=== PATIENT | female | born 1995 | race Caucasian/White ===

== ENCOUNTER 2021-05-28 10:32 | Inpatient (IN) | payer BC, OTHER ==
[~2021-05-28 10:32] MED LIST: Bupivacaine 0.25% 10 ML SDV ONE
[2021-05-28] MEDS ORDERED: Sodium Chloride 0.9% 10 ML Syringe FLUSH PRN (10:49)
[2021-05-28] MEDS ORDERED: Lidocaine 1% 50 ML MDV INJECT ONE (10:49)
[2021-05-28] MEDS ORDERED: Nalbuphine 10 MG/1 ML Vial IVPUSH PRN (10:49)
[2021-05-28] MEDS ORDERED: Ondansetron 4 MG/2 ML SDV IVPUSH PRN (10:49)
[2021-05-28] MEDS ORDERED: ePHEDrine 50 MG/ML SDV IVPUSH PRN (10:59)
[2021-05-28] MEDS ORDERED: Bupivacaine/fentaNYL/NS 100 ML Bag EPIDUR PRN (10:59)
[2021-05-28] MEDS ORDERED: fentaNYL 100 MCG/2 ML SDV EPIDUR PRN (10:59)
[2021-05-28] MEDS ORDERED: diphenhydrAMINE 50 MG/ML SDV IVPUSH PRN (10:59)
[2021-05-28] MEDS ORDERED: Oxytocin/Lactated Ringers 10 UNIT/1,000 ML BAG IV SCH (11:00)
[2021-05-28] MEDS ORDERED: Lactated Ringers 1,000 ML IV SCH (11:00)
--- NOTE | 2021-05-28 11:05 | PCM.PREANE ---
Preanesthetic Assessment - Procedure Proposed Procedure: Labor epidural - Anesthesia/Transfusion/Family Hx Anesthesia History: Prior Anesthesia Reaction Type of Anesthesia Reaction: Excessive Nausea/Vomiting Family History of Anesthesia Reaction: No Transfusion History: No Prior Transfusion(s) Intubation History: Unknown - Review of Systems General: No Symptoms Pulmonary: No Symptoms Cardiovascular: No Symptoms Gastrointestinal: Abdominal Pain (uterine contractions), Nausea, Vomiting Neurological: No Symptoms Other: Reports: Easy Bleeding, Easy Bruising, Diabetes (Gestional diabetes), Anxiety - Physical Assessment NPO Status Date: 05/27/21 NPO Status Time: 20:00 Height: 1.65 m Weight: 109.316 kg ASA Class: 3 Mental Status: Alert & Oriented x3 Airway Class: Mallampati = 3 Dentition: Reports: Normal Dentition Thyro-Mental Finger Breadths: 3 Mouth Opening Finger Breadths: 3 ROM/Head Extension: Full Lungs: Clear to Auscultation, Normal Respiratory Effort Cardiovascular: Regular Rate, Regular Rhythm, No Murmurs - Lab Values: Awaiting for lab results - Allergies Allergies/Adverse Reactions: Allergies Allergy/AdvReac Type Severity Reaction Status Date / Time sulfamethoxazole Allergy Hives Verified 05/28/21 10:46 [From Bactrim] trimethoprim [From Bactrim] Allergy Hives Verified 05/28/21 10:46 - Blood Blood Available: Yes Product(s) Available: PRBC - Acknowledgements Anesthesia Type Planned: Epidural Pt an Appropriate Candidate for the Planned Anesthesia: Yes Alternatives and Risks of Anesthesia Discussed w Pt/Guardian: Yes Pt/Guardian Understands and Agrees with Anesthesia Plan: Yes PreAnesthesia Questionnaire HEENT History: Reports: Impaired Vision Cardiovascular History: Reports: None Respiratory History: Reports: None Gastrointestinal History: Reports: GERD Genitourinary History: Reports: None, Other (See Below) Other Genitourinary History: History of kidney stones, no surgical interventions 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: Musculoskeletal History: Reports: None Neurological History: Reports: None Psychiatric History: Reports: None Endocrine/Metabolic History: Reports: Diabetes, Gestational, Obesity/BMI 30+ Hematologic History: Reports: None Immunologic History: Reports: None Oncologic (Cancer) History: Reports: None Dermatologic History: Reports: None - Past Surgical History GI Surgical History: Reports: Other (See Below) Other GI Surgeries/Procedures: Lap paulo Female Surgical History: Reports: LEEP - SUBSTANCE USE Tobacco Use Status *Q: Never Tobacco User Tobacco Use Within Last Twelve Months: No Second Hand Smoke Exposure: No Days Per Week of Alcohol Use: 0 Number of Drinks Per Day: 0 Total Drinks Per Week: 0 Recreational Drug Use History: No - CURRENT (IN HOUSE) MEDS Current Meds: Current Medications Oxytocin/Lactated Ringer's (Pitocin In Lr 10 Units/1,000 Ml) 10 unit in 1,000 mls @ 500 mls/hr IV .CONTINUOUS DAMIAN Lactated Ringer's (Ringers, Lactated) 1,000 mls @ 100 mls/hr IV ASDIRECTED DAMIAN Nalbuphine HCl (Nalbuphine 10 Mg/1 Ml Vial) 10 mg IVPUSH Q2H PRN PRN Reason: Pain Ondansetron HCl (Ondansetron 4 Mg/2 Ml Sdv) 4 mg IVPUSH Q4H PRN PRN Reason: Nausea/Vomiting Sodium Chloride (Sodium Chloride 0.9% 10 Ml Syringe) 10 ml FLUSH ASDIRECTED PRN PRN Reason: Keep Vein Open Discontinued Medications Lidocaine HCl (Lidocaine 1% 50 Ml Mdv) 50 ml INJECT ONETIME ONE Stop: 05/28/21 10:50
--- NOTE | 2021-05-28 11:34 | PCM.LDHP ---
L&D History of Present Illness - General Date of Service: 05/28/21 Admit Problem/Dx: Patient Status Order with Admit Dx/Problem 05/28/21 10:50 Patient Status [ADT] Routine Admission Diagnosis/Problem Admission Diagnosis/Problem Source of Information: Patient History Limitations: Reports: No Limitations - History of Present Illness Introduction:: Patient is a 26 y/o at 38 0/7 wks who presents in labor. Contractions started around 0800. Became very uncomfortable on ride down. 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 : 3 Para: 1 LMP (Approximate): Psychiatric History: Reports: Depression Endocrine/Metabolic History: Reports: Diabetes, Gestational, Obesity/BMI 30+ Hematologic History: Reports: Other (See Below) (betathalassemia) - Infectious Disease History Infectious Disease History: Reports: Herpes, MRSA - Past Surgical History GI Surgical History: Reports: Cholecystectomy Female Surgical History: Reports: LEEP Social & Family History - Tobacco Use Tobacco Use Status *Q: Never Tobacco User Second Hand Smoke Exposure: No - Alcohol Use Alcohol Use History: No Days Per Week of Alcohol Use: 0 Number of Drinks Per Day: 0 Total Drinks Per Week: 0 - Recreational Drug Use Recreational Drug Use: No H&P Review of Systems - Review of Systems: Review Of Systems: See Below General: Reports: No Symptoms Pulmonary: Reports: No Symptoms Cardiovascular: Reports: No Symptoms Gastrointestinal: Reports: No Symptoms Genitourinary: Reports: No Symptoms Musculoskeletal: Reports: No Symptoms Psychiatric: Reports: No Symptoms Neurological: Reports: No Symptoms L&D Exam - Exam Exam: See Below - Vital Signs Weight: 109.316 kg - OB Specific Contraction Intensity: Strong Movement: Active Heart Tones: Present Heart Tones per Min: 145 Heart Rate (FHR) Variability: Moderate (6-25 bpm) Presentation: Vertex - Marie Score Marie Score Cervix Position: Anterior Marie Score Consistency: Soft Marie Score Effacement: >80% Marie Score Dilation: > 5 cm Marie Score 's Station: -1 ,0 Marie Score Total: 12 - Exam General: Alert, Oriented, Cooperative Lungs: Clear to Auscultation, Normal Respiratory Effort Cardiovascular: Regular Rate, Regular Rhythm GI/Abdominal Exam: Soft, Non-Tender Genitourinary: Normal external exam Extremities: Normal Inspection Skin: Warm, Dry, Intact - Patient Data Lab Results Last 24 hrs: Laboratory Results - last 24 hr 05/28/21 Range/Units 10:53 WBC 12.75 H (3.98-10.04) K/mm3 RBC 5.46 H (3.98-5.22) M/mm3 Hgb 10.8 L (11.2-15.7) gm/dl Hct 33.3 L (34.1-44.9) % MCV 61.0 L (79.4-94.8) fl MCH 19.8 L (25.6-32.2) pg MCHC 32.4 (32.2-35.5) g/dl RDW Std Deviation 36.7 (36.4-46.3) fL Plt Count 403 H (182-369) K/mm3 MPV 11.3 (9.4-12.3) fl Neut % (Auto) 80.0 H (34.0-71.1) % Lymph % (Auto) 13.6 L (19.3-51.7) % Town[place] % (Auto) 5.5 (4.7-12.5) % Eos % (Auto) 0.2 L (0.7-5.8) Baso % (Auto) 0.2 (0.1-1.2) % Neut # (Auto) 10.20 H (1.56-6.13) K/mm3 Lymph # (Auto) 1.74 (1.18-3.74) K/mm3 Towner # (Auto) 0.70 H (0.24-0.36) K/mm3 Eos # (Auto) 0.02 L (0.04-0.36) K/mm3 Baso # (Auto) 0.02 (0.01-0.08) K/mm3 Result Diagrams: 05/28/21 10:53 - Problem List (1) 38 weeks gestation of SNOMED Code(s): 03523068 ICD Code: Z3A.38 - 38 WEEKS GESTATION OF Status: Acute Current Visit: Yes (2) Beta thalassemia trait SNOMED Code(s): 615136753 ICD Code: D56.3 - THALASSEMIA MINOR Status: Acute Current Visit: Yes (3) Gestational diabetes SNOMED Code(s): 93740566 ICD Code: O24.419 - GESTATIONAL DIABETES MELLITUS IN , UNSP CONTROL Status: Acute Current Visit: Yes Qualifiers: Gestational diabetes mellitus control: diet-controlled Trimester: third trimester Qualified Code(s): O24.410 - Gestational diabetes mellitus in , diet controlled (4) History of herpes genitalis SNOMED Code(s): 716122318 ICD Code: Z86.19 - PERSONAL HISTORY OF OTHER INFECTIOUS AND PARASITIC DISEASES Status: Acute Current Visit: Yes Problem List Initiated/Reviewed/Updated: Yes Orders Last 24hrs: Active Orders 24 hr Category Date Time Status Patient Status [ADT] Routine ADT 05/28/21 10:50 Active Activity as Tolerated [RC] PFP Care 05/28/21 10:50 Active Communication Order [RC] ASDIRECTED Care 05/28/21 10:50 Active Heart Tones [RC] ASDIRECTED Care 05/28/21 10:51 Active Non Stress Test [RC] PER UNIT ROUTINE Care 05/28/21 10:50 Active Notify Provider [RC] ASDIRECTED Care 05/28/21 10:59 Active Notify Provider [RC] PFP Care 05/28/21 10:50 Active Notify Provider [RC] PRN Care 05/28/21 10:50 Active Peripheral IV Care [RC] . DIRECTED Care 05/28/21 10:51 Active Pump Management, Intrathecal [RC] ASDIRECTED Care 05/28/21 10:52 Active Urinary Catheter Assessment [RC] ASDIRECTED Care 05/28/21 10:49 Active Vital Signs [RC] PER UNIT ROUTINE Care 05/28/21 10:50 Active Regular Diet [DIET] Diet 05/28/21 Breakfast Active CORONAVIRUS COVID-19 NIELS [MOLEC] Stat Lab 05/28/21 10:56 Received RAPID PLASMA REAGIN,RPR [CHEM] Routine Lab 05/28/21 10:53 Received Bupivacaine/fentaNYL/NS [fentaNYL/Bupivacaine/NS 2 MCG- Med 05/28/21 10:59 Active 0.125% 100 ML] 100 ml EPIDUR ASDIRECTED PRN Lactated Ringers [Ringers, Lactated] 1,000 ml Med 05/28/21 11:00 Active IV ASDIRECTED Nalbuphine [Nubain] Med 05/28/21 10:49 Active 10 mg IVPUSH Q2H PRN Ondansetron [Zofran] Med 05/28/21 10:49 Active 4 mg IVPUSH Q4H PRN Oxytocin/Lactated Ringers [Pitocin in LR 10 Units/1,000 Med 05/28/21 11:00 Active ML] 10 unit in 1,000 ml IV .CONTINUOUS Sodium Chloride 0.9% [Saline Flush] Med 05/28/21 10:49 Active 10 ml FLUSH ASDIRECTED PRN diphenhydrAMINE [Benadryl] Med 05/28/21 10:59 Active 25 mg IVPUSH Q6H PRN ePHEDrine [ePHEDrine sulfate] Med 05/28/21 10:59 Active 5 mg IVPUSH ASDIRECTED PRN fentaNYL [Sublimaze] Med 05/28/21 10:59 Active 100 mcg EPIDUR Q3H PRN Electronic Heart Tones Ext w TOCO [WOMSER] Oth 05/28/21 10:50 Ordered Routine Electronic Heart Tones Internal [WOMSER] Per Unit Oth 05/28/21 10:50 Ordered Routine Peripheral IV Insertion Adult [OM.PC] Routine Oth 05/28/21 10:50 Ordered Resuscitation Status Routine Resus Stat 05/28/21 10:49 Ordered Medication Orders Diphenhydramine HCl (Diphenhydramine 50 Mg/Ml Sdv) 25 mg IVPUSH Q6H PRN PRN Reason: pruritis Ephedrine Sulfate (Ephedrine 50 Mg/Ml Sdv) 5 mg IVPUSH ASDIRECTED PRN PRN Reason: Hypotension Fentanyl (Fentanyl 100 Mcg/2 Ml Sdv) 100 mcg EPIDUR Q3H PRN PRN Reason: Pain Last Admin: 05/28/21 11:23 Dose: 100 mcg Documented by: DORA Fentanyl/Bupivacaine HCl (Bupivacaine/Fentanyl/Ns 100 Ml Bag) 100 ml EPIDUR ASDIRECTED PRN PRN Reason: Pain Oxytocin/Lactated Ringer's (Pitocin In Lr 10 Units/1,000 Ml) 10 unit in 1,000 mls @ 500 mls/hr IV .CONTINUOUS DAMIAN Lactated Ringer's (Ringers, Lactated) 1,000 mls @ 100 mls/hr IV ASDIRECTED DAMIAN Nalbuphine HCl (Nalbuphine 10 Mg/1 Ml Vial) 10 mg IVPUSH Q2H PRN PRN Reason: Pain Ondansetron HCl (Ondansetron 4 Mg/2 Ml Sdv) 4 mg IVPUSH Q4H PRN PRN Reason: Nausea/Vomiting Last Admin: 05/28/21 11:27 Dose: 4 mg Documented by: DORA Sodium Chloride (Sodium Chloride 0.9% 10 Ml Syringe) 10 ml FLUSH ASDIRECTED PRN PRN Reason: Keep Vein Open Assessment/Plan Comment:: * Patient denies any concerns for HSV outbreak currently * Hx of MRSA. Culture to be done today * GODMA1, blood sugars q2 * GBS negative * Pain management per patient preference * Anticipate
--- NOTE | 2021-05-28 12:24 | PCM.DEL ---
L & D Note - General Info Date of Service: 05/28/21 - Delivery Note Labor: Spontaneous Delivery Outcome: Livebirth Delivery Method: Spontaneous Vaginal Delivery-Single Delivery Mode: Spontaneous Presentation: Left Occiput Anterior (KATHY) Nuchal Cord: None Anesthesia Type: Epidural Amniotic Fluid Description: Clear Episiotomy Type: None Laceration: 1st Degree Suture type: Vicryl Suture size: 2-0 Placenta: Intact, Spontaneous Cord: 3 Vessels Estimated Blood Loss: 150 Resuscitation Needed: Yes : Bulb Syringe, Stimulated, Warmed, [place] Used, Warmer Used Delivery Comments (Free Text/Narrative):: Patient complete and began pushing. With maternal pushing effort head delivered from KATHY presentation. No nuchal cord present. With gentle downward tractions the shoulders and body delivered. Infant placed on maternal abdomen. Cord clamped and cut. Cord blood obtained. Placenta allowed time to separate and expelled intact. Inspection of perineum showed small 1st degree which was repaired with a 2-0 in the typical fashion - General Info Date of Service: 05/28/21 - Patient Data Vitals - Most Recent: Last Vital Signs Temp 36.6 C 05/28/21 11:10 Pulse 94 05/28/21 11:10 Resp 20 05/28/21 11:10 BP 127/83 05/28/21 11:10 Pulse Ox 100 05/28/21 11:10 Weight - Most Recent: 109.316 kg - Problem List & Annotations (1) 38 weeks gestation of SNOMED Code(s): 46384206 Code(s): Z3A.38 - 38 WEEKS GESTATION OF Status: Acute Current Visit: Yes (2) Beta thalassemia trait SNOMED Code(s): 310237699 Code(s): D56.3 - THALASSEMIA MINOR Status: Acute Current Visit: Yes (3) Gestational diabetes SNOMED Code(s): 32122199 Code(s): O24.419 - GESTATIONAL DIABETES MELLITUS IN , UNSP CONTROL Status: Acute Current Visit: Yes Qualifiers: Gestational diabetes mellitus control: diet-controlled Trimester: third trimester Qualified Code(s): O24.410 - Gestational diabetes mellitus in , diet controlled (4) History of herpes genitalis SNOMED Code(s): 715831800 Code(s): Z86.19 - PERSONAL HISTORY OF OTHER INFECTIOUS AND PARASITIC DISEASES Status: Acute Current Visit: Yes (5) Vaginal delivery SNOMED Code(s): 132928785 Code(s): O80 - ENCOUNTER FOR FULL-TERM UNCOMPLICATED DELIVERY Status: Acute Current Visit: Yes - Problem List Review Problem List Initiated/Reviewed/Updated: Yes - My Orders Last 24 Hours: My Active Orders 05/28/21 Breakfast Regular Diet [DIET] 05/28/21 10:49 Urinary Catheter Assessment [RC] ASDIRECTED Nalbuphine [Nubain] 10 mg IVPUSH Q2H PRN Ondansetron [Zofran] 4 mg IVPUSH Q4H PRN Sodium Chloride 0.9% [Saline Flush] 10 ml FLUSH ASDIRECTED PRN Resuscitation Status Routine 05/28/21 10:50 Patient Status [ADT] Routine Activity as Tolerated [RC] PFP Communication Order [RC] ASDIRECTED Non Stress Test [RC] PER UNIT ROUTINE Notify Provider [RC] PFP Notify Provider [RC] PRN Vital Signs [RC] PER UNIT ROUTINE Electronic Heart Tones Ext w TOCO [WOMSER] Routine Electronic Heart Tones Internal [WOMSER] Per Unit Routine Peripheral IV Insertion Adult [OM.PC] Routine 05/28/21 10:51 Heart Tones [RC] ASDIRECTED Peripheral IV Care [RC] . DIRECTED 05/28/21 10:52 Pump Management, Intrathecal [RC] ASDIRECTED 05/28/21 10:53 RAPID PLASMA REAGIN,RPR [CHEM] Routine 05/28/21 11:00 Lactated Ringers [Ringers, Lactated] 1,000 ml IV ASDIRECTED Oxytocin/Lactated Ringers [Pitocin in LR 10 Units/1,000 ML] 10 unit in 1,000 ml IV .CONTINUOUS 05/28/21 11:43 Blood Glucose Check, Bedside [RC] Q2HR - Assessment Assessment:: PPD#0 - Plan Plan:: * Routine cares * Fasting blood sugar in AM * Discharge home in 1-2 days
[2021-05-28] MEDS ORDERED: Benzocaine/Menthol 20%-0.5% Spray 78 GM Cannister TOP PRN (13:14)
[2021-05-28] MEDS ORDERED: Docusate Sodium 100 MG Cap PO PRN (13:14)
[2021-05-28] MEDS ORDERED: Witch Hazel Medicated Pads 40/Jar TOP PRN (13:14)
[2021-05-28] MEDS ORDERED: Acetaminophen 325 MG Tab PO PRN (13:14)
[2021-05-28] MEDS: Ibuprofen 600 MG Tab PO PRN ×2 (13:23→22:12)
[2021-05-28] MEDS ORDERED: Calcium Carbonate 500 MG Tab.Chew PO ONE (16:56)
[2021-05-28] MEDS ORDERED: Lactated Ringers 500 ML IV ONE (17:52)
--- NOTE | 2021-05-29 06:32 | PCM.PNPP ---
- General Info Date of Service: 05/29/21 Functional Status: Reports: Pain Controlled, Tolerating Diet, Ambulating, Urinating - Review of Systems General: Reports: No Symptoms Pulmonary: Reports: No Symptoms Cardiovascular: Reports: No Symptoms Gastrointestinal: Reports: No Symptoms Genitourinary: Reports: No Symptoms Musculoskeletal: Reports: No Symptoms Neurological: Reports: No Symptoms - General Info Date of Service: 05/29/21 - Patient Data Vital Signs - Most Recent: Last Vital Signs Temp 36.7 C 05/29/21 03:51 Pulse 75 05/29/21 03:51 Resp 15 05/29/21 03:51 BP 116/83 05/29/21 03:51 Pulse Ox 99 05/29/21 03:51 Weight - Most Recent: 109.316 kg I&O - Last 24 Hours: Intake & Output 05/28/21 05/28/21 05/29/21 14:59 22:59 06:59 Intake Total 2240 Balance 2240 Lab Results - Last 24 Hours: Laboratory Results - last 24 hr 05/28/21 05/28/21 05/28/21 Range/Units 10:53 10:53 10:56 WBC 12.75 H (3.98-10.04) K/mm3 RBC 5.46 H (3.98-5.22) M/mm3 Hgb 10.8 L (11.2-15.7) gm/dl Hct 33.3 L (34.1-44.9) % MCV 61.0 L (79.4-94.8) fl MCH 19.8 L (25.6-32.2) pg MCHC 32.4 (32.2-35.5) g/dl RDW Std Deviation 36.7 (36.4-46.3) fL Plt Count 403 H (182-369) K/mm3 MPV 11.3 (9.4-12.3) fl Neut % (Auto) 80.0 H (34.0-71.1) % Lymph % (Auto) 13.6 L (19.3-51.7) % Gates % (Auto) 5.5 (4.7-12.5) % Eos % (Auto) 0.2 L (0.7-5.8) Baso % (Auto) 0.2 (0.1-1.2) % Neut # (Auto) 10.20 H (1.56-6.13) K/mm3 Lymph # (Auto) 1.74 (1.18-3.74) K/mm3 Gates # (Auto) 0.70 H (0.24-0.36) K/mm3 Eos # (Auto) 0.02 L (0.04-0.36) K/mm3 Baso # (Auto) 0.02 (0.01-0.08) K/mm3 Manual Slide Review Abnormal smear RPR Non-reactive (NONREACTIVE) SARS-CoV-2 RNA (NIELS) Negative (NEGATIVE) MRSA (PCR) 05/28/21 Range/Units 12:25 WBC (3.98-10.04) K/mm3 RBC (3.98-5.22) M/mm3 Hgb (11.2-15.7) gm/dl Hct (34.1-44.9) % MCV (79.4-94.8) fl MCH (25.6-32.2) pg MCHC (32.2-35.5) g/dl RDW Std Deviation (36.4-46.3) fL Plt Count (182-369) K/mm3 MPV (9.4-12.3) fl Neut % (Auto) (34.0-71.1) % Lymph % (Auto) (19.3-51.7) % Gates % (Auto) (4.7-12.5) % Eos % (Auto) (0.7-5.8) Baso % (Auto) (0.1-1.2) % Neut # (Auto) (1.56-6.13) K/mm3 Lymph # (Auto) (1.18-3.74) K/mm3 Gates # (Auto) (0.24-0.36) K/mm3 Eos # (Auto) (0.04-0.36) K/mm3 Baso # (Auto) (0.01-0.08) K/mm3 Manual Slide Review RPR (NONREACTIVE) SARS-CoV-2 RNA (NIELS) (NEGATIVE) MRSA (PCR) Negative Med Orders - Current: Current Medications Acetaminophen (Acetaminophen 325 Mg Tab) 650 mg PO Q4H PRN PRN Reason: mild pain or fever Last Admin: 05/28/21 15:23 Dose: 650 mg Documented by: Benzocaine/Menthol (Benzocaine/Menthol 20%-0.5% [place] 78 Gm Cannister) 0 gm TOP ASDIRECTED PRN PRN Reason: Perineal Comfort Measure Last Admin: 05/28/21 14:40 Dose: 1 can Documented by: Docusate Sodium (Docusate Sodium 100 Mg Cap) 100 mg PO BID PRN PRN Reason: Constipation Ibuprofen (Ibuprofen 600 Mg Tab) 600 mg PO Q6H PRN PRN Reason: Mild pain or fever Last Admin: 05/28/21 22:12 Dose: 600 mg Documented by: Rosey Vargas (Rosey Vargas Medicated Pads 40/Jar) 1 pad TOP ASDIRECTED PRN PRN Reason: Perineal Comfort Measure Last Admin: 05/28/21 14:39 Dose: 1 box Documented by: Discontinued Medications Calcium Carbonate/Glycine (Calcium Carbonate 500 Mg Tab.Chew) 1,000 mg PO ONETIME ONE Stop: 05/28/21 16:57 Last Admin: 05/28/21 17:06 Dose: 1,000 mg Documented by: Diphenhydramine HCl (Diphenhydramine 50 Mg/Ml Sdv) 25 mg IVPUSH Q6H PRN PRN Reason: pruritis Ephedrine Sulfate (Ephedrine 50 Mg/Ml Sdv) 5 mg IVPUSH ASDIRECTED PRN PRN Reason: Hypotension Fentanyl (Fentanyl 100 Mcg/2 Ml Sdv) 100 mcg EPIDUR Q3H PRN PRN Reason: Pain Last Admin: 05/28/21 11:23 Dose: 100 mcg Documented by: Fentanyl/Bupivacaine HCl (Bupivacaine/Fentanyl/Ns 100 Ml Bag) 100 ml EPIDUR ASDIRECTED PRN PRN Reason: Pain Oxytocin/Lactated Ringer's (Pitocin In Lr 10 Units/1,000 Ml) 10 unit in 1,000 mls @ 500 mls/hr IV .CONTINUOUS DAMIAN Lactated Ringer's (Ringers, Lactated) 1,000 mls @ 100 mls/hr IV ASDIRECTED DAMIAN Last Admin: 05/28/21 10:55 Dose: 100 mls/hr Documented by: Lactated Ringer's (Ringers, Lactated) 500 mls @ 100 mls/hr IV .BOLUS ONE Stop: 05/28/21 22:51 Last Admin: 05/28/21 18:14 Dose: 100 mls/hr Documented by: Lidocaine HCl (Lidocaine 1% 50 Ml Mdv) 50 ml INJECT ONETIME ONE Stop: 05/28/21 10:50 Nalbuphine HCl (Nalbuphine 10 Mg/1 Ml Vial) 10 mg IVPUSH Q2H PRN PRN Reason: Pain Ondansetron HCl (Ondansetron 4 Mg/2 Ml Sdv) 4 mg IVPUSH Q4H PRN PRN Reason: Nausea/Vomiting Last Admin: 05/28/21 11:27 Dose: 4 mg Documented by: Sodium Chloride (Sodium Chloride 0.9% 10 Ml Syringe) 10 ml FLUSH ASDIRECTED PRN PRN Reason: Keep Vein Open - Interaction Disposition, : in Room with Family Interaction: Holding Feeding: Attempted ; Nursed Fair/Poor, Bottle Fed Support Person: - Recovery Exam Fundal Tone: Firm Fundal Level: At Umbilicus Fundal Placement: Midline Lochia Amount: Small Lochia Color: Rubra/Red Perineum Description: Other (see below) Other Perinuem Description: 1st degree with repair Episiotomy/Laceration: Approximated Bladder Status: Voiding Urinary Elimination: Voided - Exam General: Alert, Oriented, Cooperative GI/Abdominal Exam: Soft, Non-Tender - Problem List & Annotations (1) 38 weeks gestation of SNOMED Code(s): 33902364 Code(s): Z3A.38 - 38 WEEKS GESTATION OF Status: Acute Current Visit: Yes (2) Beta thalassemia trait SNOMED Code(s): 708171578 Code(s): D56.3 - THALASSEMIA MINOR Status: Acute Current Visit: Yes (3) Gestational diabetes SNOMED Code(s): 37852235 Code(s): O24.419 - GESTATIONAL DIABETES MELLITUS IN , UNSP CONTROL Status: Acute Current Visit: Yes Qualifiers: Gestational diabetes mellitus control: diet-controlled Trimester: third trimester Qualified Code(s): O24.410 - Gestational diabetes mellitus in , diet controlled (4) History of herpes genitalis SNOMED Code(s): 616227815 Code(s): Z86.19 - PERSONAL HISTORY OF OTHER INFECTIOUS AND PARASITIC DISEASES Status: Acute Current Visit: Yes (5) Vaginal delivery SNOMED Code(s): 017306237 Code(s): O80 - ENCOUNTER FOR FULL-TERM UNCOMPLICATED DELIVERY Status: Acute Current Visit: Yes - Problem List Review Problem List Initiated/Reviewed/Updated: Yes - My Orders Last 24 Hours: My Active Orders 05/28/21 10:49 Resuscitation Status Routine 05/28/21 Lunch Regular Diet [DIET] 05/28/21 13:14 Acetaminophen [TylenoL] 650 mg PO Q4H PRN Benzocaine/Menthol [Dermoplast Pain Relief 20%-0.5% [place]] See Dose Instructions TOP ASDIRECTED PRN Docusate Sodium [Colace] 100 mg PO BID PRN Ibuprofen [Motrin] 600 mg PO Q6H PRN witch Britni [Tucks] 1 pad TOP ASDIRECTED PRN Heat Therapy [OM.PC] PRN 05/28/21 13:14 Activity as Tolerated [RC] PER UNIT ROUTINE Vital Signs [RC] 03,,, Assess Lochia [WOMSER] Per Unit Routine Assess Uterine Involution [WOMSER] Per Unit Routine Breast Pump [WOMSER] Per Unit Routine Ice Therapy [OM.PC] Per Unit Routine Perineal Care [OM.PC] Per Unit Routine Peripheral IV Discontinue [OM.PC] Routine Sitz Bath [OM.PC] Per Unit Routine 05/29/21 05:00 Blood Glucose Check, Bedside [RC] ASDIRECTED 05/29/21 06:32 Ready for Discharge [RC] PER UNIT ROUTINE 05/29/21 13:14 Heat Therapy [OM.PC] PRN - Assessment Assessment:: PPD#1 - Plan Plan:: * Routine cares * Fasting blood sugar this AM WNL * Breast and bottle feeding * Discharge home today
--- NOTE | 2021-05-29 07:31 | PCM48HPAN ---
Post Anesthesia Note - EVALUATION WITHIN 48HRS OF ANESTHETIC Vital Signs in Normal Range: Yes Patient Participated in Evaluation: Yes Respiratory Function Stable: Yes Airway Patent: Yes Cardiovascular Function Stable: Yes Hydration Status Stable: Yes Pain Control Satisfactory: Yes Nausea and Vomiting Control Satisfactory: Yes Mental Status Recovered: Yes Vital Signs: Last Vital Signs Temp 36.7 C 05/29/21 03:51 Pulse 75 05/29/21 03:51 Resp 15 05/29/21 03:51 BP 116/83 05/29/21 03:51 Pulse Ox 99 05/29/21 03:51 - COMMENTS/OBSERVATIONS Free Text/Narrative:: no anesthesia complications noted
[2021-05-29] MEDS: Ibuprofen 600 MG Tab PO PRN (09:01)
== END 2021-05-29 13:30 | disposition home or self-care (01) | DRG 806 ==
LOC: JD.OBCHECK 10:32 → JD.OB 10:37 → JD.OBCHECK 10:50 → OBSVTOIN 12:07 → JD.OB 12:08
PROVIDERS: ADMIT Obstetrics & Gynecology; ATTEND Obstetrics & Gynecology
PROC: 10E0XZZ Delivery of Products of Conception, External Approach (ICD-10-PCS; principal; 2021-05-28)
PROC: 10907ZC Drainage of Amniotic Fluid, Therapeutic from Products of Conception, Via Natural or Artificial Opening (ICD-10-PCS; 2021-05-28)
PROC: 0HQ9XZZ Repair Perineum Skin, External Approach (ICD-10-PCS; 2021-05-28)
PROC: 3E0R3BZ Introduction of Anesthetic Agent into Spinal Canal, Percutaneous Approach (ICD-10-PCS; 2021-05-28)
PROC: 00HU33Z Insertion of Infusion Device into Spinal Canal, Percutaneous Approach (ICD-10-PCS; 2021-05-28)
DX: O24.420 Gestational diabetes mellitus in childbirth, diet controlled (principal); O98.32 Other infections with a predominantly sexual mode of transmission complicating childbirth; Z37.0 Single live birth; Z3A.38 38 weeks gestation of pregnancy; O99.62 Diseases of the digestive system complicating childbirth; K21.9 Gastro-esophageal reflux disease without esophagitis; A60.09 Herpesviral infection of other urogenital tract; O99.214 Obesity complicating childbirth; O70.0 First degree perineal laceration during delivery; O35.2XX0 Maternal care for (suspected) hereditary disease in fetus, not applicable or unspecified; D56.3 Thalassemia minor; Z86.19 Personal history of other infectious and parasitic diseases; Z88.2 Allergy status to sulfonamides; Z88.1 Allergy status to other antibiotic agents
CPT/HCPCS: 01967; 36415; 59025; 59409; 82947; 85025; 86592; 87641; A9270-GY; J2405; J3010; J3490; J7120; U0002

== ENCOUNTER 2021-05-31 14:24 | Emergency (ER) | payer OTHER | END 2021-05-31 16:36 | disposition left against medical advice (07) | LOC: JD.ED 14:24 | DX: Z53.21 Procedure and treatment not carried out due to patient leaving prior to being seen by health care provider (principal) ==

== ENCOUNTER 2021-06-05 12:52 | Emergency (ER) | payer OTHER ==
[2021-06-05] MEDS ORDERED: Sodium Chloride 0.9% 10 ML Syringe FLUSH PRN (13:36)
[2021-06-05] MEDS ORDERED: Sodium Chloride 0.9% 1,000 ML IV SCH ×2 (13:45→15:30)
--- NOTE | 2021-06-05 13:53 | PCM.PREANE ---
Preanesthetic Assessment - Procedure Proposed Procedure: Post dural puncture headache from epidural placement on 05/28/2021. - Anesthesia/Transfusion/Family Hx Anesthesia History: Prior Anesthesia Reaction Type of Anesthesia Reaction: Excessive Nausea/Vomiting Family History of Anesthesia Reaction: No Transfusion History: No Prior Transfusion(s) Intubation History: Unknown - Review of Systems General: No Symptoms Pulmonary: No Symptoms Cardiovascular: No Symptoms Gastrointestinal: No Symptoms, Diarrhea Neurological: No Symptoms Other: Reports: Easy Bleeding, Easy Bruising, Depression, Anxiety - Physical Assessment NPO Status Date: 06/04/21 NPO Status Time: 21:00 Vital Signs: Last Vital Signs Temp 36.6 C 06/05/21 13:10 Pulse 65 06/05/21 13:10 Resp 16 06/05/21 13:10 BP 129/81 06/05/21 13:10 Pulse Ox 95 06/05/21 13:10 Height: 1.65 m Weight: 99.79 kg ASA Class: 3 Mental Status: Alert & Oriented x3 Airway Class: Mallampati = 2 Dentition: Reports: Normal Dentition, Caries Thyro-Mental Finger Breadths: 3 Mouth Opening Finger Breadths: 3 ROM/Head Extension: Full Lungs: Clear to Auscultation, Normal Respiratory Effort Cardiovascular: Regular Rate, Regular Rhythm, No Murmurs - Lab Values: All labs reviewed and noted and within acceptable ranges to proceed with blood patch. - Allergies Allergies/Adverse Reactions: Allergies Allergy/AdvReac Type Severity Reaction Status Date / Time sulfamethoxazole Allergy Hives Verified 06/05/21 13:12 [From Bactrim] trimethoprim [From Bactrim] Allergy Hives Verified 06/05/21 13:12 - Anesthesia Plan Pre-Op Medication Ordered: None - Acknowledgements Anesthesia Type Planned: Epidural (Blood patch for post dural puncture headache.) Pt an Appropriate Candidate for the Planned Anesthesia: Yes Alternatives and Risks of Anesthesia Discussed w Pt/Guardian: Yes Pt/Guardian Understands and Agrees with Anesthesia Plan: Yes PreAnesthesia Questionnaire HEENT History: Reports: Impaired Vision Cardiovascular History: Reports: None Respiratory History: Reports: None Gastrointestinal History: Reports: GERD Genitourinary History: Reports: Renal Calculus Other Genitourinary History: History of kidney stones, no surgical interventions 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: , 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 Musculoskeletal History: Reports: None Neurological History: Reports: None Psychiatric History: Reports: Depression Endocrine/Metabolic History: Reports: Diabetes, Gestational, Obesity/BMI 30+ Hematologic History: Reports: Other (See Below) Immunologic History: Reports: None Oncologic (Cancer) History: Reports: None Dermatologic History: Reports: None - Infectious Disease History Infectious Disease History: Reports: Herpes, MRSA - Past Surgical History GI Surgical History: Reports: Cholecystectomy Other GI Surgeries/Procedures: Lap paulo Female Surgical History: Reports: LEEP - SUBSTANCE USE Tobacco Use Status *Q: Never Tobacco User Second Hand Smoke Exposure: No Recreational Drug Use History: No - HOME MEDS Home Medications: Home Meds Sertraline [Zoloft] 100 mg PO DAILY 06/05/21 [History] - CURRENT (IN HOUSE) MEDS Current Meds: Current Medications Sodium Chloride (Normal Saline) 1,000 mls @ 999 mls/hr IV ONETIME [facility] Last Admin: 06/05/21 13:42 Dose: 999 mls/hr Documented by: Sodium Chloride (Sodium Chloride 0.9% 10 Ml Syringe) 10 ml FLUSH ASDIRECTED PRN PRN Reason: Keep Vein Open Last Admin: 06/05/21 13:42 Dose: 10 ml Documented by:
--- NOTE | 2021-06-05 14:04 | PCM.SN.2 ---
- Free Text/Narrative Note: Anesthesia Note: Procedure: Autonomous blood patch for post dural puncture headache from laboring epidural placed 05/28/2021. Time Out: 1439 Start: 1439 Stop: 1530 Patient assessed along with chart, allergies, and labs. Patient informed of risks, benefits, and desires to continue with blood patch. The consent has been signed. Patient sitting up for blood patch placement. One liter of saline infusing. Second liter started after patch placed. Site prepped with 3 swabs of betadine. Sterile drape, and sterile technique noted. Site localized with 2ml's of 1% lidocaine. 17gauge tuohy placed at level L3-L4. (LOIS with air noted). 15ml's of autologous blood placed via sterile technique through the tuohy needl e. Patient advised and encouraged to remain supine for 60 minutes prior to moving and being discharged home. Minimal lifting and exertion also advised. Thank you! Belia Sethi KEYING MACHINE OPERATOR Time Documentation
--- NOTE | 2021-06-05 14:22 | EDM.PDOC ---
ED HPI GENERAL MEDICAL PROBLEM - General Chief Complaint: Headache Stated Complaint: HEADACHE FROM EPIDURAL\\BLOOD PATCH Time Seen by Provider: 06/05/21 13:21 Source of Information: Reports: Patient, RN Notes Reviewed - History of Present Illness INITIAL COMMENTS - FREE TEXT/NARRATIVE: 26 yr old female comes in with Neil concerns. She had an epidural 8 days ago for OB delivery. She has had Neil since that time, "unbearable when sitting or standing", much better to lie down. No fever chill or other unusual sx. She is breast feeding. Headache Pain Score (Numeric/FACES): 10 - Related Data Allergies Allergy/AdvReac Type Severity Reaction Status Date / Time sulfamethoxazole Allergy Hives Verified 06/05/21 13:12 [From Bactrim] trimethoprim [From Bactrim] Allergy Hives Verified 06/05/21 13:12 Home Meds: Home Meds Sertraline [Zoloft] 100 mg PO DAILY 06/05/21 [History] Past Medical History HEENT History: Reports: Impaired Vision Cardiovascular History: Reports: None Respiratory History: Reports: None Gastrointestinal History: Reports: GERD Genitourinary History: Reports: Renal Calculus Other Genitourinary History: History of kidney stones, no surgical interventions 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: , 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 Musculoskeletal History: Reports: None Neurological History: Reports: None Psychiatric History: Reports: Depression Endocrine/Metabolic History: Reports: Diabetes, Gestational, Obesity/BMI 30+ Hematologic History: Reports: Other (See Below) Immunologic History: Reports: None Oncologic (Cancer) History: Reports: None Dermatologic History: Reports: None - Infectious Disease History Infectious Disease History: Reports: Herpes, MRSA - Past Surgical History GI Surgical History: Reports: Cholecystectomy Other GI Surgeries/Procedures: Lap paulo Female Surgical History: Reports: LEEP Social & Family History - Tobacco Use Tobacco Use Status *Q: Never Tobacco User Second Hand Smoke Exposure: No - Recreational Drug Use Recreational Drug Use: No ED ROS GENERAL - Review of Systems Review Of Systems: See Below Constitutional: Denies: Fever, Chills, Diaphoresis HEENT: Denies: Sinus Problem, Throat Pain Respiratory: Denies: Shortness of Breath Cardiovascular: Denies: Chest Pain GI/Abdominal: Denies: Abdominal Pain, Nausea, Vomiting Musculoskeletal: Reports: Neck Pain (upper neck) Skin: Reports: No Symptoms Neurological: Reports: Headache. Denies: Numbness, Tingling, Trouble Speaking, Weakness - Physical Exam Exam: See Below General Appearance: Alert, Moderate Distress Eye Exam: Bilateral Eye: PERRL Head Exam: Atraumatic Neck: Normal Inspection, Supple Respiratory/Chest: No Respiratory Distress, Lungs Clear, Normal Breath Sounds Cardiovascular: Regular Rate, Rhythm Neuro Exam (Abbreviated): Alert, Oriented, No Motor/Sensory Deficits Extremities: Normal Inspection Skin Exam: Warm, Dry, Normal Color, No Rash Course - Vital Signs Last Recorded V/S: Last Vital Signs Temp 98 F 06/05/21 13:10 Pulse 65 06/05/21 13:10 Resp 16 06/05/21 13:10 BP 129/81 06/05/21 13:10 Pulse Ox 95 06/05/21 13:10 - Orders/Labs/Meds Orders: Active Orders 24 hr Category Date Time Status Peripheral IV Care [RC] . DIRECTED Care 06/05/21 13:36 Active Sodium Chloride 0.9% [Normal Saline] 1,000 ml Med 06/05/21 15:30 Active IV ASDIRECTED Sodium Chloride 0.9% [Normal Saline] 1,000 ml Med 06/05/21 13:45 Active IV ONETIME Sodium Chloride 0.9% [Saline Flush] Med 06/05/21 13:36 Active 10 ml FLUSH ASDIRECTED PRN Peripheral IV Insertion Adult [OM.PC] Stat Oth 06/05/21 13:36 Ordered Medication Orders Sodium Chloride (Normal Saline) 1,000 mls @ 999 mls/hr IV ONETIME [facility] Last Admin: 06/05/21 13:42 Dose: 999 mls/hr Documented by: DAVIS Sodium Chloride (Normal Saline) 1,000 mls @ 999 mls/hr IV ASDIRECTED [facility] Last Admin: 06/05/21 15:23 Dose: 999 mls/hr Documented by: DAVIS Sodium Chloride (Sodium Chloride 0.9% 10 Ml Syringe) 10 ml FLUSH ASDIRECTED PRN PRN Reason: Keep Vein Open Last Admin: 06/05/21 13:42 Dose: 10 ml Documented by: DAVIS Labs: Laboratory Tests 06/05/21 Range/Units 13:45 WBC 8.88 (3.98-10.04) K/mm3 RBC 5.60 H (3.98-5.22) M/mm3 Hgb 10.9 L (11.2-15.7) gm/dl Hct 34.6 (34.1-44.9) % MCV 61.8 L (79.4-94.8) fl MCH 19.5 L (25.6-32.2) pg MCHC 31.5 L (32.2-35.5) g/dl RDW Std Deviation 38.1 (36.4-46.3) fL Plt Count 505 H D (182-369) K/mm3 MPV 10.3 (9.4-12.3) fl Neut % (Auto) 79.9 H (34.0-71.1) % Lymph % (Auto) 14.6 L (19.3-51.7) % [place] % (Auto) 4.4 L (4.7-12.5) % Eos % (Auto) 0.8 (0.7-5.8) Baso % (Auto) 0.2 (0.1-1.2) % Neut # (Auto) 7.09 H (1.56-6.13) K/mm3 Lymph # (Auto) 1.30 (1.18-3.74) K/mm3 [place] # (Auto) 0.39 H (0.24-0.36) K/mm3 Eos # (Auto) 0.07 (0.04-0.36) K/mm3 Baso # (Auto) 0.02 (0.01-0.08) K/mm3 Manual Slide Review Abnormal smear Meds: Medications Generic Name Dose Route Start Last Admin Trade Name Freq PRN Reason Stop Dose Admin Sodium Chloride 1,000 mls @ 999 mls/hr 06/05/21 13:45 06/05/21 13:42 Normal Saline IV 999 mls/hr ONETIME [facility] Administration Sodium Chloride 1,000 mls @ 999 mls/hr 06/05/21 15:30 06/05/21 15:23 Normal Saline IV 999 mls/hr ASDIRECTED [facility] Administration Sodium Chloride 10 ml 06/05/21 13:36 06/05/21 13:42 Sodium Chloride 0.9% 10 Ml Syringe FLUSH 10 ml ASDIRECTED PRN Administration Keep Vein Open - Re-Assessments/Exams Free Text/Narrative Re-Assessment/Exam: 11/01/21 14:21 Have disussed with Sierra G., resource protection specialist for anesthesia. She will come see pt., plan to do a blood patch. Departure - Departure Time of Disposition: 16:15 Disposition: Home, Self-Care 01 Condition: Fair Clinical Impression: Head ache Qualifiers: Headache type: unspecified Headache chronicity pattern: acute headache Intractability: not intractable Qualified Code(s): R51.9 - Headache, unspecified - Discharge Information Instructions: Epidural Blood Patch for Spinal Headache, Care After Referrals: PCP,None [Primary Care Provider] - Forms: ED Department Discharge Additional Instructions: Rest, increase activity slowly as tolerated. You may tylenol and ibuprofen as needed for discomfort. Follow up clinic as needed. Return to ED as needed if symptoms worsening in any way. Sepsis Event Note (ED) - Evaluation Sepsis Screening Result: No Definite Risk - Focused Exam Vital Signs: Vital Signs Temp Pulse Resp BP Pulse Ox 06/05/21 13:10 98 F 65 16 129/81 95 - My Orders Last 24 Hours: My Active Orders 06/05/21 13:36 Peripheral IV Care [RC] . DIRECTED Sodium Chloride 0.9% [Saline Flush] 10 ml FLUSH ASDIRECTED PRN Peripheral IV Insertion Adult [OM.PC] Stat 06/05/21 13:45 Sodium Chloride 0.9% [Normal Saline] 1,000 ml IV ONETIME 06/05/21 15:30 Sodium Chloride 0.9% [Normal Saline] 1,000 ml IV ASDIRECTED - Assessment/Plan Last 24 Hours: My Active Orders 06/05/21 13:36 Peripheral IV Care [RC] . DIRECTED Sodium Chloride 0.9% [Saline Flush] 10 ml FLUSH ASDIRECTED PRN Peripheral IV Insertion Adult [OM.PC] Stat 06/05/21 13:45 Sodium Chloride 0.9% [Normal Saline] 1,000 ml IV ONETIME 06/05/21 15:30 Sodium Chloride 0.9% [Normal Saline] 1,000 ml IV ASDIRECTED
== END 2021-06-05 16:20 | disposition home or self-care (01) ==
LOC: JD.ED 12:52
DX: R51.9 Headache, unspecified (principal); Z88.1 Allergy status to other antibiotic agents
CPT/HCPCS: 36415; 62273; 85025; 99284; J7030